=== PATIENT | female | born 2000 | race Caucasian/White ===

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

== ENCOUNTER 2022-04-27 11:45 | Emergency (ER) | payer BC, SELFPAY ==
[2022-04-27 12:19] VITALS: BP 133/92; PULSE 88; RESP 17; TEMP 36.2; O2SAT 99; BMI 20.1
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
[2022-04-27] MEDS: sodium chloride 0.9% 1,000 ML 999 ML IV ×2 (12:58→14:38)
[2022-04-27 13:20] LABS: Basophils % 0.3 %; Eosinophils # 0.2 10^3/uL (0.0-0.8); Eosinophils % 1.2 %; Hematocrit 43.5 % (37.0-47.0); Hemoglobin 14.4 g/dL (11.5-15.3); Lymphocytes # 3.6 10^3/uL (1.5-6.5); Lymphocytes % 29.3 %; Mean Corpuscular HGB Conc 33.1 g/dL (30.0-36.0); Mean Corpuscular Hemoglobin 28.7 pg (28.0-34.0); Mean Corpuscular Volume 86.8 fl (81-99); Mean Platelet Volume 10.9 fL (7.4-10.4); Monocytes % 8.4 %; Neutrophils # 7.51 10^3/uL (1.8-8.0); Neutrophils % 60.6 %; Nucleated Red Blood Cells % 0 %; Platelet Count 315 10^3/cmm (130-400); Red Blood Count 5.01 10^6/uL (4.1-5.3); Red Cell Distribution Width 11.5 % (12.1-15.1); White Blood Count 12.4 10^3/uL (4.5-13.0)
[2022-04-27 13:50] LABS: Alanine Aminotransferase 17 U/L (0-33); Albumin Level 4.6 g/dL (3.5-5.2); Alkaline Phosphatase 110 IU/L (35-105); Anion Gap 14.6 (5-19); Aspartate Amino Transferase 18 U/L (0-32); Blood Urea Nitrogen 12 mg/dL (6-20); C Reactive Protein 4.6 mg/L (0.0-4.9); Calcium 9.6 mg/dL (8.5-10.5); Carbon Dioxide 26 mmol/L (22-29); Chloride 100 mmol/L (98-107); Globulin 3.2 g/dL (1.3-4.6); Glomerular Filtration Rate 128.8 mL/min (90-130); Glucose 79 mg/dL (65-115); Lipase 19 U/L (13-60); Osmolality Calculated 283 mOsm/kg (285-295); Potassium 3.6 mmol/L (3.5-5.1); Sodium 137 mmol/L (136-145); Total Bilirubin 0.3 mg/dL (0.15-1.2); Total Protein 7.8 g/dL (6.6-8.7)
[2022-04-27 13:57] LABS: Procalcitonin 0.03 ng/mL (0-0.5)
[2022-04-27 13:59] LABS: Lactate (Lactic Acid level) 0.8 mmol/L (0.5-2.2)
[2022-04-27] MEDS: diphenhydrAMINE 50 mg/mL SDV 1mL IVP (14:37)
[2022-04-27] MEDS: famotidine 20 mg/2 mL INJ 40 MG IVP (14:38)
[2022-04-27 15:01] VITALS: BP 117/51; PULSE 127; RESP 18; O2SAT 96
[2022-04-28 13:34] LABS: Lyme AB Screen <0.90 index
--- NOTE | 2022-04-28 14:50 | DCPLANNER ---
Addendum entered by Anyi Bertrand 05/11/22 07:30: Patient had a follow up appointment scheduled with dermatology - patient did attend appointment. Original Note: material control manager had message to schedule a follow up appointment for patient with dermatology. material control manager called the dermatology clinic, gave clinic patients information. A follow up appointment is scheduled for Wednesday, April 29, 2022 at 3:[address] Zarco. Patient is aware of the appointment.
[2022-05-02 17:37] LABS: RMSF IGG NOT DETECTED; RMSF IGM NOT DETECTED
[2022-05-02 21:28] LABS: E. Chaffeensis AB IGG <1:64; E. Chaffeensis AB IGM <1:20
== END 2022-04-27 15:41 | disposition home or self-care (01) ==
PROVIDERS: Emergency Provider Emergency Medicine; PCP Family Medicine
DX: R21 Rash and other nonspecific skin eruption (principal)
CPT/HCPCS: 80053; 83605; 83690; 84145; 85025; 86140; 86618; 86666; 86757; 87040; 96361; 96374; 96375; 99284; J1200; J3490; J7030

== ENCOUNTER → 2022-10-05 14:10 | Outpatient (BNVA) | payer BC, SELFPAY | PROVIDERS: PCP Family Medicine; Visit Provider Clinical Nurse Specialist Adult Health | DX: E16.2 Hypoglycemia, unspecified (principal) | CPT/HCPCS: 83036 ==

== ENCOUNTER → 2022-12-18 10:53 | Outpatient (BNVA) | payer BC, SELFPAY | PROVIDERS: PCP Family Medicine; Visit Provider Family Medicine | DX: R39.9 Unspecified symptoms and signs involving the genitourinary system (principal); R31.9 Hematuria, unspecified; N39.0 Urinary tract infection, site not specified | CPT/HCPCS: 81000; 87077; 87086; 87184 ==

== ENCOUNTER 2024-10-25 05:00 | Emergency (ER) | payer BC, SELFPAY ==
[2024-10-25 05:18] VITALS: BP 133/85; PULSE 77; RESP 18; TEMP 36.6; O2SAT 99; BMI 19.3
--- NOTE | 2024-10-25 05:21 | XRR_ITS ---
PROCEDURE INFORMATION: Exam: XR Chest Exam date and time: 10/25/2024 5:24 AM Age: 23 years old Clinical indication: Angina and cough; Additional info: Chest pain TECHNIQUE: Imaging protocol: Radiologic exam of the chest. Views: 1 view. COMPARISON: CR XR chest 1V portable [id number] 10/09/2020 11:54 PM FINDINGS: Lungs: Unremarkable. No consolidation. Pleural spaces: Unremarkable. No pleural effusion. No pneumothorax. Heart/Mediastinum: Unremarkable. No cardiomegaly. Bones/joints: Unremarkable. XR/XR chest 1V portable [id number] IMPRESSION: No acute findings.
--- NOTE | 2024-10-25 05:24 | ED_ITS ---
HPI - URI/Sore Throat General: Chief Complaint: Upper Respiratory Infection Stated Complaint: cough pain in L lung Time Seen by Provider: 10/25/24 05:06 History of Present Illness: 23-year-old female who is currently 7 we eks who presents emergency room with cough. She said this been present for 3 months now. She says she feels like there is something in her lung. Related Data Previous Rx's Medication Instructions Recorded albuterol sulfate 90 mcg/actuation 1 - 2 puff inhalation Q4H PRN 03/30/23 aerosol inhaler shortness of breath or wheezing #8.5 grams epinephrine 0.3 mg/0.3 mL 0.3 mg (0.3 mL) IM Q4H PRN 03/30/23 injection, auto-injector (EpiPen Allergic Reaction #2 ea 2-Sean) amoxicillin 875 mg-potassium 1 tab PO BID 7 days #14 tabs 08/27/24 clavulanate 125 mg tablet dexamethasone 6 mg tablet 6 mg PO DAILY 5 days #5 tabs 10/25/24 Allergies Allergy/AdvReac Type Severity Reaction Status Date / Time aspirin Allergy rash Verified 10/25/24 05:22 coconut Allergy Unknown Verified 10/25/24 05:22 ibuprofen Allergy rash Verified 10/25/24 05:22 shellfish derived Allergy anaphylaxis Verified 10/25/24 05:22 Review of Systems Narrative: Constitutional symptoms: Negative except as documented in HPI. Skin symptoms: Negative except as documented in HPI. Eye symptoms: Negative except as documented in HPI. ENMT symptoms: Negative except as documented in HPI. Respiratory symptoms: Negative except as documented in HPI. Cardiovascular symptoms: Negative except as documented in HPI. Gastrointestinal symptoms: Negative except as documented in HPI. Genitourinary symptoms: Negative except as documented in HPI. Musculoskeletal symptoms: Negative except as documented in HPI. Neurologic symptoms: Negative except as documented in HPI. Psychiatric symptoms: Negative except as documented in HPI. Endocrine symptoms: Negative except as documented in HPI. PFSH ED PFSH: Medical History History of suicidal ideation Alcohol related seizure Anxiety Contraception management Surgical History Hx of tonsillectomy Family History Other Multiple sclerosis Social History Smoking and tobacco/nicotine status: never used tobacco/nicotine Second hand smoke exposure: No Alcohol intake: never Substance/Drug Use: never Current gender identity: Female Female Reproductive History: Date of last menstrual period: 08/31/24 Physical Exam Narrative: EXAM NARRATIVE: General: Alert, no acute distress. Skin: Warm, dry. Head: Normocephalic, atraumatic. Neck: Supple, trachea midline. Eye: Extraocular movements are intact. Ears, nose, mouth and throat: mucosa moist. Cardiovascular: Regular, Normal peripheral perfusion. Respiratory: Lungs are clear to auscultation, respirations are non-labored, breath sounds are equal, Symmetrical chest wall expansion. Gastrointestinal: Soft, Nontender, Non distended Musculoskeletal: Normal ROM, no deformity. Neurological: Alert and oriented, No focal neurological deficit observed. Psychiatric: Cooperative, appropriate mood & affect. Course Vital Signs: Vital signs: Vital Signs Temperature 97.8 F 10/25/24 05:18 Pulse Rate 76 10/25/24 05:33 Respiratory Rate 18 10/25/24 05:18 Blood Pressure 119/80 10/25/24 05:33 Pulse Oximetry 98 10/25/24 05:33 Oxygen Delivery Me thod Room Air 10/25/24 05:18 MDM - URI/Sore Throat Medical Decision Making \Chest x-ray: No acute process. No infiltrate. No pneumothorax. This was reviewed and interpreted by myself the emergency room physician. I also reviewed the radiology report. Assessment and plan: Cough - Discharged home - Discussed plan with patient. Answered any questions. - Evaluation and treatment of this problem were appropriate in the emergency setting. XR interpretation done by ED provider, pending radiology final review Discharge Plan Discharge Patient Disposition: Home Clinical Impression: Chronic cough Condition: Stable Prescriptions: New dexamethasone 6 mg tablet 6 mg PO DAILY 5 Days Qty: 5 0RF No Action amoxicillin-pot clavulanate 875-125 mg tablet 1 tab PO BID 7 Days Qty: 14 0RF albuterol sulfate 90 mcg/actuation HFA aerosol inhaler 1 - 2 puff INHALATION Q4H PRN (Reason: shortness of breath or wheezing) Qty: 8.5 11RF EpiPen 2-Sean 0.3 mg/0.3 mL auto-injector 0.3 mg IM Q4H PRN (Reason: Allergic Reaction) Qty: 2 11RF Discharge Orders: Discharge ED (Routine); Ordered 10/25/24 Ordered By: Mojgan Sanchez Referrals: Daron Mcdonald MD [Primary Care Provider] - Discharge Diet: Usual diet Discharge Activity: Increase activity as tolerated Patient Instructions: Opioid Safety, Pain Management Activity Restrictions/Additional Instructions: Thank you for choosing [facility] for your healthcare needs today. Please realize this is an emergency room and that we are providing you with a medical screening exam and this may not be complete and all inclusive of all the testing and or work up that you may need to determine your ailment or severity of your illness. You have been screened and evaluated and felt safe for discharge. Health conditions do change or evolve sometimes and as such it is important that you follow up with your Primary Doctor to be re checked, 3-5 days is a general good time frame for follow up. You are always welcome to return to the ED for re assessment if your symptoms are worsening or you have new concerns Coding Level of Care Code ED 911 Operator for Carolyn Serrano
[2024-10-25 05:33] VITALS: BP 119/80; PULSE 76; O2SAT 98
[2024-10-25 05:43] VITALS: BP 124/77; PULSE 74; O2SAT 94
[2024-10-25 06:08] LABS: Covid PCR NEGATIVE (Negative); Influenza A NEGATIVE (Negative); Influenza B NEGATIVE (Negative); Respiratory Syncytial Virus Ce NEGATIVE (Negative)
== END 2024-10-25 05:44 | disposition home or self-care (01) ==
PROVIDERS: Emergency Provider Emergency Medicine; PCP Family Medicine
DX: R05.3 Chronic cough (principal); Z3A.01 Less than 8 weeks gestation of pregnancy
CPT/HCPCS: 0241U; 71045; 99284

== ENCOUNTER 2025-04-09 10:12 | Oncology outpatient (recurring) (ONCR) | payer BC, MEDICAID, SELFPAY ==
[2025-04-09] MEDS: rho(d) immune globulin 1,500 unit Syringe 1500 UNIT IM (11:14)
[2025-04-09 11:20] VITALS: BP 114/72; PULSE 76; RESP 16; O2SAT 99
== END 2025-04-21 23:59 | disposition home or self-care (01) ==
PROVIDERS: PCP Family Medicine; Visit Provider Family Medicine
DX: O26.899 Other specified pregnancy related conditions, unspecified trimester (principal); Z79.899 Other long term (current) drug therapy
CPT/HCPCS: 96372; J2790

== ENCOUNTER 2025-06-06 08:00 | Outpatient (CLI) | payer BC, MEDICAID, SELFPAY ==
--- OUTSIDE RECORDS SUMMARY | 2025-06-20 08:10 | XMS_ITS | Clinical Summary ---
Author Organization [facility] Address [address] Attn: [place] [address] Care Team Providers Care Planning Feeder Name Role Phone Sigifredo Faulkner MD Primary Care Provider [phone] Allergies Active Allergy Reactions Criticality Noted Date [...] 09/06/20 Active fluticasone propionate (FLONASE) 50 mcg/spray Butternut, Suspension nasal inhalerIndicatio ns:Eustachian tube dysfunction, bilateral [...] on file Legal Sex Female 2:19 AM [employer] Gender Identity Not on file Sexual Orientation [...] VACCINE (#1) 2025 , 09/06/2024, 11/25/2023 Insurance [employer] ACCESS/TRUE [employer] PPO Care Teams Planning Feeder Relationship Specialty Start Date End Date Sigifredo Faulkner MD [address] [place] [address] PCP - General Family Practice 08/25/23
--- OUTSIDE RECORDS SUMMARY | 2025-06-20 08:10 | XMS_ITS | Clinical Summary ---
Author Organization [facility] Address [address] [place] [address] Phone Care Team Providers Care Malt Specifications Control Assistant Name Role Phone Cassandra Escobar MD Primary [...] (#1) 2025 Insurance BCBS BCBS Care Teams Malt Specifications Control Assistant Relationship Specialty Start Date End Date Cassandra Escobar MD [address] [place] [address] PCP - General Family Practice 08/13/16
== END 2025-06-06 08:01 | disposition home or self-care (01) ==
LOC: OPOB 06-20 08:15
PROVIDERS: PCP Family Medicine; Visit Provider Family Medicine
DX: Z53.9 Procedure and treatment not carried out, unspecified reason (principal)

== ENCOUNTER 2025-06-08 02:24 | Outpatient (CLI) | payer BC, MEDICAID, SELFPAY ==
[2025-06-08] VITALS (9 sets, daily range): BP systolic 117–143; BP diastolic 80–86; PULSE 79–105; RESP 16; TEMP 36.1–36.6; O2SAT 100; BMI 24.7
--- NOTE | 2025-06-08 05:07 | PC.NURSE ---
Advised patient of order to discharge home. Offered 1 tab [place] and patient declines. Advised she could take tylenol at home if desired. Encouraged hydrotherapy in bath or shower at home for relaxation.
== END 2025-06-08 05:25 | disposition home or self-care (01) ==
LOC: OPOB 02:24 → OBGYN 02:24
PROVIDERS: PCP Family Medicine; Visit Provider Family Medicine
DX: O26.899 Other specified pregnancy related conditions, unspecified trimester (principal); Z3A.00 Weeks of gestation of pregnancy not specified; R10.9 Unspecified abdominal pain
CPT/HCPCS: 59025; 99211

== ENCOUNTER 2025-06-08 13:38 | Outpatient (CLI) | payer BC, MEDICAID, SELFPAY ==
[2025-06-08] VITALS (8 sets, daily range): BP systolic 115–125; BP diastolic 71–85; PULSE 81–96; RESP 18; BMI 24.7
[2025-06-08] MEDS: HYDROcodone-acetaminophen 5-325 mg Tablet 2 TAB PO (14:39)
== END 2025-06-08 16:15 | disposition home or self-care (01) ==
LOC: OPOB 13:42 → OBGYN 13:43
PROVIDERS: PCP Family Medicine; Visit Provider Family Medicine
DX: O26.899 Other specified pregnancy related conditions, unspecified trimester (principal); Z3A.00 Weeks of gestation of pregnancy not specified; R10.9 Unspecified abdominal pain
CPT/HCPCS: 59025; 99211; J9999

== ENCOUNTER 2025-06-09 00:20 | Inpatient (IN) | payer BC, MEDICAID, SELFPAY ==
[2025-06-08 23:34] VITALS: BP 128/82; PULSE 82
[2025-06-08 23:42] VITALS: BMI 24.7
[2025-06-08 23:50] VITALS: BP 136/83; PULSE 79
[2025-06-09] VITALS (92 sets, daily range): BP systolic 97–186; BP diastolic 54–102; PULSE 76–118; RESP 16–18; TEMP 36.6–36.8; O2SAT 97–100
[2025-06-09 00:35] LABS: Hematocrit 35.9 % (36-47); Hemoglobin 11.70 g/dL (11.27-16.99); Mean Corpuscular HGB Conc 32.6 g/dL (30-55); Mean Corpuscular Hemoglobin 29.3 pg (27-33); Mean Corpuscular Volume 89.8 fl (85-98); Nucleated Red Blood Cells % 0 %; Platelet Count 287 10^3/cmm (157-399); Red Blood Count 4.00 10^6/uL (3.85-5.65); White Blood Count 16.04 10^3/uL (3.29-11.43)
--- NOTE | 2025-06-09 01:35 | P.ANESASSM_ITS ---
Pre-Anesthetic Assessment Height/Weight: Height 1.68 m Weight 69.4 kg Pulse BP Pulse Ox O2 Del Method 87 125/78 97 Room Air 06/09/25 01:50 06/09/25 01:50 06/09/25 01:50 06/09/25 00:12 Preop Diagnosis: labor pain epidural Familial anesthetic complications: none Was Beta Devorah taken within 24 hours: N/A Was Clonidine taken within 24 hours: N/A Social No alcohol and No tobacco Exam alert and oriented x 3 Airway Submandibular: within normal limits Cervical ROM: within normal limits Mallampati: Class II Dentition: full History/ROS No significant complaints Pulmonary Asthma CV/HEM None reported None reported Hepatic None reported GI None reported Metabolic None reported Musc/skel Scoliosis (light curve per patient- no issues with epidural placement) Neuropsych None reported Anesthetic Plan ASA status: 2 Anesthesia: Anesthesia Evaluation and Regional (specify below) Risk of > 500 ml blood loss (7ml/kg in children): Yes, adequate IV access and fluids planned Medications/Allergies Home Medications ?Medication ?Instructions ?Recorded ?Confirmed ?Last Taken ?Type epinephrine 0.3 mg/0.3 mL 0.3 mg (0.3 mL) IM Q4H PRN 0 12/11/24 06/08/25 Unknown Rx injection, auto-injector (EpiPen Allergic Reaction #2 ea 2-Sean) Colace 1 cap PO DAILY 06/08/2505/2206/07/25 21:00 History 1 tab PO DAILY 06/08/2505/2206/07/25 21:00 History hydrocodone 5 mg-acetaminophen 325 1 tab PO Q4H PRN Pa in, Severe 06/08/25 06/08/25 Unknown History mg tablet Allergies Allergy/AdvReac Type Severity Reaction Status Date / Time aspirin Allergy rash Verified 06/08/25 23:47 coconut Allergy Unknown Verified 06/08/25 23:47 ibuprofen Allergy rash Verified 06/08/25 23:47 shellfish derived Allergy anaphylaxis Verified 06/08/25 23:47 Current Medications Generic Name Dose Route Start Last Admin Trade Name Freq PRN Reason Stop Dose Admin Sodium Chloride 1,000 mls @ 999 mls/hr 06/09/25 00:12 06/09/25 00:35 Sodium Chloride 0.9% IV 999 mls/hr .Q1H1M PRN Administration See label comments [facility] Anesthesia Medical History (Updated 11/02/24 @ 00:01 by ISABELLA Sharma) History of suicidal ideation Alcohol related seizure Anxiety Contraception management Surgical History Hx of tonsillectomy Family History Other Multiple sclerosis Social History Smoking and tobacco/nicotine status: never used tobacco/nicotine Second hand smoke exposure: No Alcohol intake: never Substance/Drug Use: never Current gender identity: Female Female Reproductive History : 1 Data Anesthesia 06/09/25 00:25 Short CBC 06/09/25 Range/Units 00:25 WBC 16.04 H (3.29-11.43) 10^3/uL Hgb 11.70 (11.27-16.99) g/dL Hct 35.9 L (36-47) % MCV 89.8 (85-98) fl Plt Count 287 (157-399) 10^3/cmm Neut % (Auto) 74.6 % Neut # (Auto) 11.95 H (1.8-7.7) 10^3/uL Blood Bank 06/09/25 00:25 Blood Type O Negative Rho(D) Type Rh negative Antibody Screen Negative
[2025-06-09] MEDS: ROPivacaine premix 100 MG/50 ML PREMIX 10 MG EPIDURAL (01:53)
--- NOTE | 2025-06-09 01:55 | ANES.PROC ---
Anesthesia Procedures Procedure/Date: 06/09/25 Epidural: Time Out Performed: Yes Consents Signed: Procedure Consent Consent: from patient, risks and benefits reviewed and patient agrees to proceed Lumbar Level: L3-L4 Epidural position: sitting Epidural procedure: sterile prep of area, 1% lidocaine to numb the area, 18 g needle, negative for paresthesia passed, test dose given, 1.5% xylocaine 1:200k epi, placed PCEA, no systemic response, sterile dressing applied, L.U.D. no apparent complications and 0.2% Ropiavacaine @ mls/hr (13) Additional Comments: LEYDA at 4, negative heme/CSF with aspiration. taped at 11 at skin. tolerated well.
[2025-06-09] MEDS: ROPivacaine premix 100 MG/50 ML PREMIX 13 MG EPIDURAL (08:25)
[2025-06-09] MEDS: lidocaine 2% INJ 20 mL INJECTION (11:50)
[2025-06-09] MEDS: oxytocin 30 UNIT/500 ML BAG 999 UNIT IV (12:21)
--- NOTE | 2025-06-09 12:29 | PM.DELIVERY ---
Delivery Note: Date of delivery: June 09, 2025 Pre-delivery diagnoses: Term intrauterine Post-delivery diagnoses: Same Procedure: Spontaneous vaginal delivery Op report anesthesia: Epidural Estimated blood loss (mL): 400 Pre-Delivery Course: This is a 24-year-old G1, P1 that presented with contractions that made cervical change. The patient made progressive progress after her rupture membranes this a.m. Delivery: Once patient was completely dilated the patient was placed into the normal lithotomy position. The patient was pushing with contractions and after approximately 30 minutes of pushing the patient delivered the 's head followed by the body without difficulty. Infant was placed onto mother's abdomen and after delay the cord was clamped and cut. Gentle traction was placed upon the cord with fundal massage however the cord did avulse from the top of the placenta. No uterine extraction was performed. Sweep of the uterine wall after placenta was removed did not demonstrate any continued retained products and uterus was firm. Oxytocin was started and uterine tone continued to do well. Review of the external genitalia did demonstrate periurethral tears bilaterally and a left labial tear that extended down into the perineum. Right periurethral tear was repaired with 2-0 Vicryl in a running fashion. Left periurethral tear was also repaired with 2-0 Vicryl. Left labial tear was repaired with 2-0 Vicryl in a running fashion. At the end of the procedure uterine tone remained good and bleeding was managed. Post-Delivery Status: Stable A&P Assessment and plan 1. Normal spontaneous vaginal delivery: Proceed with routine care. PDMP PDMP Reviewed: Not Reviewed Coding Level of Care Code Acute Code for Chg Fwd Diagnoses Normal spontaneous vaginal delivery O80
[2025-06-09] MEDS: benzocaine-menthol 78 gm Canister 1 SPRAY TOPICAL (13:12)
[2025-06-09] MEDS: HYDROcodone-acetaminophen 5-325 mg Tablet PO (20:57)
[2025-06-09 23:03] LABS: Hematocrit 35.1 % (36-47); Hemoglobin 11.80 g/dL (11.27-16.99); Mean Corpuscular HGB Conc 33.6 g/dL (30-55); Mean Corpuscular Hemoglobin 29.9 pg (27-33); Mean Corpuscular Volume 89.1 fl (85-98); Platelet Count 331 10^3/cmm (157-399); Red Blood Count 3.94 10^6/uL (3.85-5.65); White Blood Count 23.45 10^3/uL (3.29-11.43)
[2025-06-10] VITALS (8 sets, daily range): BP systolic 113–127; BP diastolic 72–84; PULSE 82–142; RESP 16–18; TEMP 36.4–37; O2SAT 97–98
[2025-06-10] MEDS: HYDROcodone-acetaminophen 5-325 mg Tablet PO (03:35)
[2025-06-10] MEDS: oxyCODONE-APAP 5-325 mg Tablet PO (05:12)
--- NOTE | 2025-06-10 08:00 | P.ANESPOST_ITS ---
Inpatient post-anesthesia follow up: Airway intact: Yes Vital signs: Temperature 97.6 F Pulse Rate 87 Respiratory Rate 18 Blood Pressure 118/76 Pulse Oximetry 98 Oxygen Delivery Me thod Room Air Oxygen Flow Rate Fraction of Inspir ed Oxygen Nausea and vomiting: No Pain level: 1 Mental status: Baseline Epidural Start/End: Epidural Start Date: 06/09/25 Epidural Start Time: 01: 31 Epidural End Date: 06/09/25 Epidural End Time: 12:15
--- NOTE | 2025-06-10 09:15 | PM.OBGYPN ---
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 She is having to urinate often. She is concerned about is not getting enough breastmilk. She had very little sleep last night and is clearly frustrated. Labor: Station: 0 Amniotic Membrane Status: Ruptured Monitor Mode: External Contraction Pattern: Regular Vitals/I&O/Wt Last Vital Signs Temp 98.3 F 06/09/25 18:30 Pulse 110 H 06/10/25 06:34 Resp 17 06/10/25 05:19 BP 115/78 06/10/25 05:19 Pulse Ox 98 06/10/25 05:12 O2 Del Method Room Air 06/10/25 05:19 06/09/25 06/10/25 06/10/25 22:59 06:59 14:59 Intake Total 50 / 50 Balance 50 / 50 Weight last 48 hrs Weight 153 lb Physical Exam Narrative: The patient is alert. She appears comfortable. Her heart has a regular rate and rhythm with no murmurs appreciated. Lungs are clear to auscultation bilaterally. Her fundus is firm and below the umbilicus. The perineum demonstrates swollen labia bilaterally. She is very tender to the touch. Urinary Catheter Management: Gilbert Latex Free: Cath Placed During This Visit: yes Reason for Continuing Indwelling Catheter: Required Immobilization for Trauma or Surgery or Anesthesia Urinary Catheter Date of Insertion: 06/09/25 Urinary Catheter Time of Insertion: 03:00 Data 06/09/25 21:50 A&P Assessment and plan 1. Urethral irritation: We discussed with the patient the nature of her anterior vaginal region tear. It does feel a lot like she is just frustrated because she is so tired at this time. Will continue to monitor her situation and consider further intervention as needed. 2. Perineal pain: 3. state: PDMP PDMP Reviewed: Not Reviewed Attestations Medical Necessity Statement*: I anticipate routine care. Coding Level of Care Code Acute Code for Chg Fwd Diagnoses Urethral irritation N36.8 Perineal pain R10.2 state Z39.2
[2025-06-10] MEDS: PRENATAL VIT NO.130/IRON/FOLIC 1 EACH TABLET PO (09:39)
--- NOTE | 2025-06-10 18:43 | PC.NURSE ---
[id number] this contract technical writer took over patient care from maycol jimenez rn at this time.
--- NOTE | 2025-06-27 06:51 | PM.OBGYDC ---
Discharge Providers PROCESS OWNER Date of Admission: 06/09/25 00:20 Date of Discharge: 06/27/25 Attending Provider at Admission: Efra Connell MD Attending Provider at Discharge: Efra Connell MD Primary Care Provider: Daron Mcdonald MD Diagnoses at Discharge Discharge Diagnosis 1. Urethral irritation: 2. Perineal pain: 3. state: Reason for Visit Reason for Visit: CTX Hospital Course Hospital Course The patient is a 24-year-old 1 who presented to the hospital in active labor. She had an unremarkable labor. Her delivery was remarkable for having the cord avulsing from the placenta. The placenta had to be manually removed. After evaluation of the patient's perineum she was noted to have significant tearing in the anterior aspect of her vaginal wall/urethral area. The remainder of her hospital course was notable for having significant vaginal pain. Otherwise her bleeding was within normal limits. She did quite well. Information Peripartum Data: Delivery Method: Vaginal Physical Exam Narrative: The patient is alert. She appears comfortable. Her heart has a regular rate and rhythm with no murmurs appreciated. Lungs are clear to auscultation bilaterally. Her fundus is firm and below the umbilicus. Urinary Catheter Management: Gilbert Latex Free: Cath Placed During This Visit: yes Reason for Continuing Indwelling Catheter: Required Immobilization for Trauma or Surgery or Anesthesia Urinary Catheter Date of Insertion: 06/09/25 Urinary Catheter Time of Insertion: 03:00 Discharge Data Studies Completed and Pending Laboratory Results WBC 23.45 10^3/uL (3.29-11.43) H 06/09/25 21:50 RBC 3.94 10^6/uL (3.85-5.65) 06/09/25 21:50 Hgb 11.80 g/dL (11.27-16.99) 06/09/25 21:50 Hct 35.1 % (36-47) L 06/09/25 21:50 MCV 89.1 fl (85-98) 06/09/25 21:50 MCH 29.9 pg (27-33) 06/09/25 21:50 MCHC 33.6 g/dL (30-55) 06/09/25 21:50 RDW 12.5 % (12.1-15.1) 06/09/25 21:50 Plt Count 331 10^3/cmm (157-399) 06/09/25 21:50 MPV 12.2 fL (7.4-10.4) H 06/09/25 21:50 Neut % (Auto) 74.6 % 06/09/25 00:25 Lymph % (Auto) 14.3 % 06/09/25 00:25 Duval % (Auto) 9.7 % 06/09/25 00:25 Eos % (Auto) 0.8 % 06/09/25 00:25 Baso % (Auto) 0.2 % 06/09/25 00:25 Neut # (Auto) 11.95 10^3/uL (1.8-7.7) H 06/09/25 00:25 Lymph # (Auto) 2.3 10^3/uL (0.8-4.8) 06/09/25 00:25 Duval # (Auto) 1.6 10^3/uL (0.2-0.9) H 06/09/25 00:25 Eos # (Auto) 0.1 10^3/uL (0.0-0.8) 06/09/25 00:25 Baso # (Auto) 0.0 10^3/uL (0.0-0.1) 06/09/25 00:25 Nucleated RBC % (auto) 0 % 06/09/25 00:25 Nucleated RBCs # 0.0 /100WBC 06/09/25 00:25 Blood Type O Negative 06/09/25 00:25 Rho(D) Type Rh negative 06/09/25 00:25 Antibody Screen Negative 06/09/25 00:25 Screen Negative (Negative) 06/09/25 21:50 Vitals Last Vital Signs Temp 97.6 F 06/10/25 20:10 Pulse 87 06/10/25 20:10 Resp 18 06/10/25 20:10 BP 118/76 06/10/25 20:10 Pulse Ox 98 06/10/25 20:10 O2 Del Method Room Air 06/10/25 18:48 Results Labs OB ([facility]): Blood Type O Negative 06/09/25 Antibody Screen Negative 06/09/25 Hct, (36-47) 35.1 % L 06/09/25 Hgb, (11.27-16.99) 11.80 g/dL 06/09/25 Rho(D) Type Rh negative 06/09/25 Plt Count, (157-399) 331 10^3/cmm 06/09/25 Discharge Plan Discharge Patient Disposition: Home Prescriptions: Continued EpiPen 2-Sean 0.3 mg/0.3 mL auto-injector 0.3 mg IM Q4H PRN (Reason: Allergic Reaction) Qty: 2 11RF Colace 1 cap PO DAILY 1 tab PO DAILY hydrocodone-acetaminophen 5-325 mg Tablet 1 tab PO Q4H PRN (Reason: Pain, Severe) Discharge Order = DC NOW: Discharge Order (Routine); Ordered 06/10/25 Ordered By: Efra Connell Referrals: Efra Connell MD [Physician, Family Practice] Referral Note: CALL WEDNESDAY AND MAKE APPOINTMENT TO SEE DR. CONNELL IN ONE WEEK. Discharge Diet: Usual diet Discharge Activity: Limit activity as instructed Patient Instructions: Depression (DC), Opioid Safety (DC), Preeclampsia and Eclampsia After Delivery (GEN), Hemorrhage (DC), OB Discharge Report, OB Food/Drug Interaction Guide, OB Care at Home, Opioid Safety, OB Vaginal Deliveries, Patient Portal & Delia Instructions, Abnormal Bleeding Discharge Attestations PROCESS OWNER Time Spent in Discharge Care*: less than 30 min Coding Level of Care Code Acute Code for Chg Fwd Diagnoses Urethral irritation N36.8 Perineal pain R10.2 state Z39.2
== END 2025-06-10 20:36 | disposition home or self-care (01) | DRG 807 ==
LOC: OPOB 00:27 → OBGYN 00:27
PROVIDERS: Family Medicine; Admitting Provider Family Medicine; PCP Family Medicine; Visit Provider Family Medicine
DX: O70.0 First degree perineal laceration during delivery (principal); Z37.0 Single live birth; O90.89 Other complications of the puerperium, not elsewhere classified; N36.8 Other specified disorders of urethra; Z3A.37 37 weeks gestation of pregnancy
CPT/HCPCS: 36415; 36430; 51702; 59025; 59409; 85025; 85027; 85460; 86850; 86900; 90384; 99211; J2590; J2795; J7030; J7121; J9999

== ENCOUNTER 2025-06-16 22:18 | Emergency (ER) | payer BC, MEDICAID, SELFPAY ==
--- OUTSIDE RECORDS SUMMARY | 2025-06-16 22:22 | XMS_ITS | Clinical Summary ---
Author Organization [facility] Address [address] Attn: [place] [address] Care Team Providers Care Nurse Care Manager Name Role Phone Sigifredo Faulkner MD Primary Care Provider [phone] Allergies Active Allergy Reactions Criticality Noted Date Comments Aspirin Anaphylaxis High 08/25/2023 Ibuprofen Rash Low 08/25/2023 Medications albuterol sulfate HFA 90 mcg/actuation aerosol inhaler Take 2 Puffs by inhalation every 6 hours as needed for Shortness of Breath. Active EPINEPHrine (EPIPEN) 0.3 mg/0.3 mL Auto-Injector Inject 0.3 mg by intramuscular injection 1 time daily as needed for Anaphylaxis. Active ketorolac tromethamine (KETOROLAC ORAL) Take by mouth. Active cefdinir (OMNICEF) 300 mg capsule Take 300 mg by mouth every 12 hours. Active cetirizine (ZyrTEC) 10 mg tabletIndication s:Eustachian tube dysfunction, bilateral Take 1 Tablet (10 mg) by mouth daily. 90 Tablet 1 09/06/20 Active fluticasone propionate (FLONASE) 50 mcg/spray [place], Suspension nasal inhalerIndicatio ns:Eustachian tube dysfunction, bilateral Administer 2 Sprays in each nostril daily. 16 Gram 11 09/06/20 24 Active Active Problems Problem Noted Date Diagnosed Date Declined influenza vaccine 09/06/2024 Encounters Date Type Department Care Team Description 06/06/2025 External Device Data [facility] ABSTRACTION Provider, Abstract 06/06/2025 External Device Data [facility] ABSTRACTION Provider, Abstract 05/08/2025 External Device Data [facility] ABSTRACTION Provider, Abstract 04/12/2025 External Device Data [facility] ABSTRACTION Provider, Abstract 04/12/2025 External Device Data [facility] ABSTRACTION Provider, Abstract 03/27/2025 External Device Data [facility] ABSTRACTION Provider, Abstract from Last 3 Months Family History Medical History Relation Name Comments Healthy Brother Other Mother MS Relation Name Status Comments Brother Alive Mother Alive Social History Tobacco Use Types Packs/Day Years Used Date Smoking Tobacco: Never Passive Smoke Exposure: Never Smokeless Tobacco: Never Tobacco Cessation:Counseling Given: No Alcohol Use Standard Drinks/Week Comments No 0 (1 standard drink = 0.6 oz pur e alcohol) ocassionally Comments No Sex and Gender Information Value Date Recorded Sex Assigned at Not on file 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 Gender Identity Not on file Sexual Orientation Not on file Last Filed Vital Signs Vital Sign Reading Time Taken Comments Blood Pressure 110/84 09/06/2024 9:53 AM CDT Pulse 83 09/06/2024 9:53 AM CDT Temperature 36.2 C (97.2 F) 09/06/2024 9:53 AM CDT Respiratory Rate 18 09/06/2024 9:53 AM CDT Oxygen Saturation 99% 09/06/2024 9:53 AM CDT Inhaled Oxygen Concentration - - Weight 52.9 kg (116 lb 9.6 oz) 09/06/2024 9:53 A M CDT Height 167.6 cm (5' 6 ) 09/06/2024 9:53 AM CDT Body Mass Index 18.82 09/06/2024 9:53 AM CDT Plan of Treatment Health Maintenance Due Date Last Done Comments CHLAMYDIA SCREENING (ANNUAL) 11-24 YEARS 2013 HPV VACCINES (1 - 3-dose series) 2017 DTAP/TDAP/TD VACCINES (1 - Tdap) 2021 HEPATITIS B VACCINES (1 of 3 - 19+ 3-dose series) 2021 CERVICAL CANCER SCREENING 2023 HPV/Cotest (21-29) 2023 PAP SMEAR 2023 Preventative Visit- Commercial 11/22/2024 07/10/2024 INFLUENZA VACCINE (#1) 2025 , 09/06/2024, 11/25/2023 Insurance [place] [employer] P[employer] Care Teams Nurse Care Manager Relationship Specialty Start Date End Date Sigifredo Faulkner MD [address] [place] [address] PCP - General Family Practice 08/25/23
--- OUTSIDE RECORDS SUMMARY | 2025-06-16 22:22 | XMS_ITS | Clinical Summary ---
Author Organization [facility] Address [address] [place] [address] Phone Care Team Providers Care Electric Distribution Checker Name Role Phone Cassandra Escobar MD Primary Care Provider Allergies No known active allergies Medications melatonin 3 mg TabletIndications :Localized swelling, mass or lump of neck,H/O removal of thyroglossal duct cyst,Abnormally prolonged clotting time Take 3 mg by mouth daily at bedtime. Active Active Problems No known active problems Family History Medical History Relation Name Comments Healthy Brother Other Mother MS Relation Name Status Comments Brother Alive Mother Alive Social History Tobacco Use Types Packs/Day Years Used Date Smoking Tobacco: Never Smokeless Tobacco: Never Alcohol Use Standard Drinks/Week Comments No 0 (1 standard drink = 0.6 oz pur e alcohol) Comments No Sex and Gender Information Value Date Recorded Sex Assigned at Not on file Legal Sex Female 1:26 PM CDT Gender Identity Not on file Sexual Orientation Not on file Last Filed Vital Signs Vital Sign Reading Time Taken Comments Blood Pressure 113/73 08/13/2016 1:37 PM CDT Pulse 68 08/13/2016 1:37 PM CDT Temperature 36.7 C (98 F) 08/13/2016 1:37 PM CDT Respiratory Rate 16 08/13/2016 1:37 PM CDT Oxygen Saturation 100% 08/13/2016 1:37 PM CDT Inhaled Oxygen Concentration - - Weight 51.1 kg (112 lb 9.6 oz) 08/13/2016 1:37 P M CDT Height 163.3 cm (5' 4.29 ) 08/13/2016 1:37 PM CD T Body Mass Index 19.15 08/13/2016 1:37 PM CDT Plan of Treatment Health Maintenance Due Date Last Done Comments CHLAMYDIA SCREENING (ANNUAL) 11-24 YEARS 2013 HPV VACCINES (1 - 3-dose series) 2017 DTAP/TDAP/TD VACCINES (1 - Tdap) 2021 HEPATITIS B VACCINES (1 of 3 - 19+ 3-dose series) 11/24 CERVICAL CANCER SCREENING 2023 HPV/Cotest (21-29) 2023 PAP SMEAR 2023 INFLUENZA VACCINE (#1) 2025 Insurance BCBS BCBS Care Teams Electric Distribution Checker Relationship Specialty Start Date End Date Cassandra Escobar MD [address] [place] [address] PCP - General Family Practice 08/13/16
--- OUTSIDE RECORDS SUMMARY | 2025-06-16 22:22 | XMS_ITS | Data Portability ---
Author Organization [facility] Pancho [facility] Mattie Keller [facility] Address [address] [facility] [address] [place] [address] Assessment No assessment recorded. Plan of Treatment Reminders Order Date Submit Date Provider Last Modified By Organization Details Last Modified Time Details Appointments OFFICE VISIT 10 2024 03:15P M Efra Connell MD Not available Not available Not available Lab streptoco ccus group B, culture, unspecifi ed specimen 2024 025 [facility], [address] [facility] [address], [address] [place], [address], 05/19/2025 09:39:49 Referral None recorded. Procedures None recorded. Surgeries None recorded. Imaging None recorded. Medication Orders None recorded. Patient TargetsNo targets recorded. Patient InstructionsNo instructions recorded. Reason for Referral None Reported. Results Created Date Observation Date Name Description Value Unit Range Abnormal Flag Note LastModifiedBy Organization Detail LastModifiedTime 04/02/2004/02/2025 CBC WBC 14.8 x10 4.0-10 .5 high Not Available [facility] [address], [place], [address], 04/02/2025 16:07:20 04/02/20 25 04/02/2025 CBC RBC 3.96 x10 3.50-5 .50 Not Available [facility] [address], [place], [address], 04/02/2025 16:07:20 04/02/20 25 04/02/2025 CBC HGB 12.4 g/dL 12.0-1 6.0 Not Available [facility] [address] [facility] [address], [place], [address], 04/02/2025 16:07:20 04/02/20 25 04/02/2025 CBC HCT 37.3 % 37.0-4 7.0 Not Available [facility] [address] [facility] [address], [place], [address], 04/02/2025 16:07:20 04/02/20 25 04/02/2025 CBC MCV 94.1 fL 80.0-9 9.9 Not Available [facility] [address] [facility] [address], [place], [address], 04/02/2025 16:07:20 04/02/20 25 04/02/2025 CBC MCH 31.2 pg 27.0-3 2.0 Not Available [facility] [address] [facility] [address], [place], [address], 04/02/2025 16:07:20 04/02/20 25 04/02/2025 CBC MCHC 33.2 g/dL 32.0-3 6.0 Not Available [facility] [address] [facility] [address], [place], [address], 04/02/2025 16:07:20 04/02/20 25 04/02/2025 CBC RDW 13.2 % 11.5-1 4.5 Not Available [facility] [address] [facility] [address], [place], [address], 04/02/2025 16:07:20 04/02/20 25 04/02/2025 CBC plt 321.8 x10 140.0- 451.0 Not Available [facility] [address] [facility] [address], [place], [address], 04/02/2025 16:07:20 04/02/20 25 04/02/2025 CBC lymphocytes % 15.8 % 20.0-5 0.0 low Not Available [facility] [address] [facility] [facility] [address], [place], [address], 04/02/2025 16:07:20 04/02/20 25 04/02/2025 CBC granulcytes % 75.6 % 30.0-7 0.0 high Not Available [facility] [address] [facility] [address], [place], [address], 04/02/2025 16:07:20 04/02/20 25 04/02/2025 CBC monocytes % 6.7 % 2.0-16 .0 Not Available [facility] [address] [facility], [place], [address], 04/02/2025 16:07:20 04/02/20 25 04/02/2025 CBC granulcytes# 11.2 x10 Not Luda ilable [facility] [address] [facility] [address], [place], [address], 04/02/2025 16:07:20 04/02/20 25 04/02/2025 CBC lymphocytes # 2.3 x10 Not Available [facility] [address] [facility], [place], [address], 04/02/2025 16:07:20 04/02/20 25 04/02/2025 CBC monocytes # 1.0 x10 Not Avai lable [facility] [address] [facility] [address], [place], [address], 04/02/2025 16:07:20 04/02/20 25 04/02/2025 GLUCO SE SCREE N glucose screen 158.0 mg/dL Not Available [facility] [address] [facility] [address], [place], [address], 04/02/2025 16:27:22 04/11/20 25 04/11/2025 GLUCO SE FASTI NG glucose fasting 82.0 mg/dL Not Available [facility] [address] [facility], [place], [address], 04/11/2025 09:45:35 04/11/20 25 04/11/2025 GLUCO SE 1 HR glucose 1 HR 143.0 mg/dL Not Available [facility] [address] [facility] [address], [place], [address], 04/11/2025 10:16:00 04/11/20 25 04/11/2025 GLUCO SE 2 HR glucose 2 HR 114.0 mg/dL Not Available [facility] [address] [facility] [address], [place], [address], 04/11/2025 11:16:31 04/11/20 25 04/11/2025 GLUCO SE 3 HR glucose 3 HR 102.0 mg/dL Not Available [facility] [address] [facility] [address], [place], [address], 04/11/2025 12:31:13 05/16/20 25 05/19/2025 STREP TOCOC CUS, GROUP B CULTU RE streptococcu s, group B culture SEE NOTE STREP TOCOC CUS, GROUP B CULTU RE Micro Numbe r: [id number] Test Statu s: Final Speci men Sourc e: Vagin al/an orect al Speci men Quali ty: Adequ ate Resul t: No group B Strep tococ cus isola jenna Note per CDC guide lines optim al recov greg is achie jennifer by swabb ing both the lower vagin a and rectu m (thro ugh the anal sphin cter) . Not Available [employer] [facility] [address], [place], [address], 05/19/2025 09:39:49 05/10/20 25 05/01/2025 US, obste tric, 3rd trime ster No observ ation record ed. [email or web address] Not Available 05/11 10:23:37 Result Notes None recorded. Problems Name Problem SNOMED Code Status Onset Date Resolution Date Notes Provider Name and Address Organization Details Recorded Time Normal in primigravid a 9054274774191 03 Active 2024 GRAYSON stock [facility], L.L.CMatthew 16:00:20 Normal in primigravid a 2827003928654 03 Active 2024 GRAYSON stock [facility], L.L.CMatthew 16:00:21 Breech presentatio n 6525895 Active 2024 MONIQUE MANSFIELD [facility], L.L.CMatthew 16:22:27 Uterine size for dates discrepancy 166462679 Active 2024 MONIQUE Butcher [facility], L.L.CMatthew 5 16:22:32 Abdominal pain in 226897363 Active 2024 Efra Connell MD [address] [place] [address], [address], [facility], L.L.CMatthew 5 17:14:40 Acute urinary tract infection 179453496 Active 2024 Efra Connell MD [address] [place] [address], [phone], [facility], L.L.CMatthew 11:54:47 Problem Notes None recorded. Procedures Surgical History Date Name Laterality Status Provider Name and Address Organization Details Recorded Time 025 sampling of anus for Papanicolaou smear completed [facility]AGA [facility] 04/18/2025 16:23:49 025 Date of Last Pap Smear completed GRAYSON PACHECO [facility], L.L.CMatthew 01/03/2025 15:42:38 tonsillectomy completed GRAYSON PACHECO [facility], LMatthewL.CMatthew 01/03/2025 15:42:57 Imaging Results None recorded. Procedure Notes None recorded. Medical Equipment None Reported. Allergies Allergen ID Allergen Name Allergen Category Reaction Reaction Severity Criticality Documentation Date Start Date Code Code System Note Provider Name and Address Organization Details Recorded Time 29953 ibuprofen medicatio n rash Not available Not available 06/19/2023 5640 RxNorm [facility] 5 15:25:18 45782 aspirin medicatio n anaphylax is Not available Not available 10/31/2024 1191 RxNorm MONIQUE Butcher [facility] L[facility]C. 4 14:24:05 31079 shellfish derived food,medi cation Not available Not available Not available 03/07/2025 04260 UNK MONIQUE Butcher [facility] 5 16:30:07 Medications Name Sig Start Date Stop Date Status Note LastModified by Organization Details LastModified Time cetirizin e 10 mg tablet active Not Available Not Available Not Available azithromy radha 250 mg tablet TAKE 2 TABLETS BY MOUTH ON DAY 1, AND THEN TAKE 1 TABLET BY MOUTH ONCE A DAY ON DAY 2 THROUGH DAY 5 11/16 completed Not Available Not Available Not Available hydrocodo ne 5 mg-acetam inophen 325 mg tablet Take 1 tablet every 6 hours by oral route. 2024 active Not Available Not Available Not Avai lable dexametha sone 6 mg tablet TAKE 1 TABLET BY MOUTH ONCE DAILY FOR 5 DAYS 11/16 completed Not Available Not Available Not Available Epi E-Z Pen 0.3 mg/0.3 mL injection , auto-inje ctor Take by injectio n route. active Not Available Not Available No t Available ketorolac 10 mg tablet TAKE 1 TABLET BY MOUTH EVERY 6 HOURS NEEDED FOR PAIN 12/06 completed Not Available Not Available Not Available benzonata te 100 mg capsule TAKE 1 CAPSULE BY MOUTH THREE TIMES DAILY NEEDED FOR COUGH 11/16 completed Not Available Not Available Not Available cephalexi n 500 mg capsule Take 1 capsule 3 times a day by oral route. 2024 active Not Available Not Available Not Avai lable ranitidin e 150 mg tablet 10/31 completed Recorded 03/17/20 16 6:03PM by JACLYN Loredo, Office Visit; Refill Quantity : 0; Not Available Not Available Not Available albuterol sulfate HFA 90 mcg/actua tion aerosol inhaler Inhale 2 puffs every 4 hours by inhalati on route. active Not Available Not Available No t Available cefdinir 300 mg capsule TAKE 1 CAPSULE BY MOUTH EVERY 12 HOURS FOR 10 DAYS 11/16 completed Not Available Not Available Not Available fluticaso ne propionat e 50 mcg/actua tion nasal spray,rust pension 04/18 completed Not Available Not Available Not Available amoxicill in 875 mg-potass ium clavulana te 125 mg tablet 11/16 completed Not Available Not Available Not Available Vitamin 27 mg iron-0.8 mg tablet Take 1 tablet every day by oral route. active Not Available Not Available No t Available Mucinex 600 mg tablet, extended release TAKE 1 BY MOUTH TWICE DAILY FOR 7 DAYS 11/16 completed Not Available Not Available Not Available Tylenol Extra Strength 500 mg/15 mL oral liquid every four hours, as needed 10/31 completed 0; Recorded 03/17/20 16 5:34PM by Yarely Mancia LPN, Office Visit; Not Available Not Available Not Available ciproflox acin 0.3 %-dexamet hasone 0.1 % ear drops,[facility] ADMINIST ER 4 DROPS INTO RIGHT EAR TWICE DAILY FOR 7 DAYS 11/16 completed Not Available Not Available Not Available nitrofura ntoin monohydra te/macroc rystals 100 mg capsule TAKE 1 CAPSULE BY MOUTH TWICE DAILY FOR 7 DAYS 11/16 completed Not Available Not Available Not Available Aleve every twelve hours, as needed 10/31 completed 0; Recorded 03/17/20 16 5:34PM by Yarely Mancia LPN, Office Visit; Not Available Not Available Not Available Vitals Date Recorded Body height Body mass index (BMI) Body weight Oxygen saturation Oxygen saturation in Arterial blood by Pulse oximetry Heart rate Respiratory rate Body temperature Systolic And Diastolic Provider Name and Address Organization Details Last Updated DateTime 5 167.64 cm 22.9 kg/m2 91670.8 2 g 99 % 99 % 77 /min 18 /min 97.6 [degF] 120/74 mm[Hg] MONIQUE TERESA [facility], LMatthewLAnna 5 13:22:12 Date Recorded Body height Body mass index (BMI) Body weight Respiratory rate Oxygen saturation Oxygen saturation in Arterial blood by Pulse oximetry Heart rate Body temperature Systolic And Diastolic Provider Name and Address Organization Details Last Updated DateTime 5 167.64 cm 23.9 kg/m2 89419.3 7 g 18 /min 98 % 98 % 100 /min 98.8 [degF] 128/66 mm[Hg] GRAYSON PACHECO [facility], L.L.CMatthew 5 16:17:38 Date Recorded Body height Body mass index (BMI) Body weight Oxygen saturation Oxygen saturation in Arterial blood by Pulse oximetry Heart rate Systolic And Diastolic Provider Name and Address Organization Details Last Updated DateTime 5 167.64 cm 24.2 kg/m2 59951.8 6 g 98 % 98 % 105 /min 110/78 mm[Hg] Esperanza Andre [facility], L.L.CMatthew 5 15:03:45 Date Recorded Body height Body mass index (BMI) Body weight Oxygen saturation Oxygen saturation in Arterial blood by Pulse oximetry Heart rate Respiratory rate Body temperature Systolic And Diastolic Provider Name and Address Organization Details Last Updated DateTime 5 167.64 cm 24.6 kg/m2 00568.7 4 g 98 % 98 % 90 /min 18 /min 97.8 [degF] 132/74 mm[Hg] MONIQUE TERESA [facility], L.L.CMatthew 5 16:09:23 Social History Question Answer Notes LastModified by Organizat ion Details LastModified Time Tobacco Smoking Status Former Smoker MONIQUE FRAGA [facility] 10/31/2024 14:27:44 Are You Blind Or Do You Have Difficulty Seeing? No Information not available 06/06/2025 Are You Deaf Or Do You Have Serious Difficulty Hearing? No Information not available 06/06/2025 Who Is Your Employer? [employer] Information not available 10/31/2024 What Was The Date Of Your Most Recent Tobacco Screening? 04/18/2025 Information not available 04/18/2025 What Is Your Relationship Status? Information not available 10/31/2024 Are You Sexually Active? Yes Information not available 10/31/2024 Do You Have Difficulty Walking Or Climbing Stairs? No Information not available 06/06/2025 Sex: Unknown Functional Status Question Answer Note LastModified by Organizat ion Details LastModified Time Do you use any illicit or recreational drugs? No Information not available 10/31/2024 Do you or have you ever used any other forms of tobacco or nicotine? No [email or web address] Information not available 05/16/2025 What is your level of alcohol consumption? None Information not available 10/31/2024 Are you currently employed? Yes Information not available 10/31/2024 Are you able to walk? YESWOREST Information not available 06/06/2025 Do you have difficulty doing errands alone? No Information not available 06/06/2025 Are you able to care for yourself independently? Yes Information not available 10/31/2024 Do you have difficulty dressing, bathing, grooming, or toileting? No Information not available 10/31/2024 Mental Status Question Answer Note LastModified by Organization D etails LastModified Time Do you have difficulty concentrating, remembering or making decisions? No Information no t available 06/06/2025 Family History Relationship Description Onset Age of this Age Resolved Age Notes LastModified by Organization Details LastModified Time Maternal Grandfather Heart disease [email or web address] Not available 14:26:23 Brother Diabetes mellitus Type 1 [email or web address] Not available 14:26:49 Medical History Condition Response Coronary Artery Disease N Other N Gout N Kidney Stones N Blood Diseases N Hyperthyroidism N Breast Cancer N Blood Transfusion N Depression Y Hypothyroidism N Lung Disease N COPD N Developmental or Behavioral Disorders N Defects or Inherited Disease N Breast Problem N Difficulty Swallowing N Anesthesia Complications N Anxiety Disorder Y Meniere's disease N Muscle, Joint, or Bone Problems N Vision or Eye Problems N Arthritis N Infertility N Polyps N Cancer N Stroke N Varicosities N Endometriosis N Bladder or Kidney Problems N High Cholesterol N Liver Disease N Fibromyalgia N Headaches N Kidney Disease N Allergies/Hayfever Y Heart Problems N Ear or Hearing Problems N Hospitalizations N Thyroid Problems N GI Problems N ADD/ADHD N Skin Problems N Eating Disorder N Anemia N Constipation N Mental Illness N Ovarian Cancer N Diabetes N Bedwetting N Seizures/Epilepsy N Tuberculosis N Eczema N Diverticulitis N Abuse/Domestic Violence N Asthma Y Reflux/GERD N Hepatitis N Heart Disease N Pulmonary Embolism N Pre-Eclampsia N Hypertension N Chronic Ear Infections N Osteoporosis N Chicken Pox N Autism Spectrum Disorder (ASD) N Thrombophilias N Gynecological History Statement/Question Response Abnormal Pap N Date of Last Pap Smear 12/06/2024 Obstetrics History GPAL:G 1 P 0 0 0 0 Immunizations Vaccine Type Date Status Note Provider Nam e and Address Organization Details Recorded Time Tdap 5 completed MONIQUE stock [facility], CarmellaLAnna 05/16/2025 16:47:31 HPV9 6 completed MONIQUE stock [facility], Mattie 10/31/2024 14:23:34 IPV 3 completed MONIQUE stock [facility], Mattie 10/31/2024 14:23:35 MMR 4 completed MONIQUE stock [facility] 10/31/2024 14:23:35 MMR 8 completed TREBA NEUSCHWANDER null, [facility] 10/31/2024 14:23:35 Tdap 6 completed TREBA NEUSCHWANDER null, [facility] 10/31/2024 14:23:35 varicella 4 completed TREBA NEUSCHWANDER null, [facility] 10/31/2024 14:23:35 varicella 8 completed TREBA NEUSCHWANDER null, [facility] 10/31/2024 14:23:35 Hep B, adolescent or pediatric 3 completed TREBA NEUSCHWANDER null, [facility] 10/31/2024 14:23:35 Hep A, ped/adol, 2 dose 6 completed TREBA NEUSCHWANDER null, [facility] 10/31/2024 14:23:35 Hib (PRP-T) 3 completed TREBA NEUSCHWANDER null, [facility] 10/31/2024 14:23:35 Hib (PRP-T) 4 completed TREBA NEUSCHWANDER null, [facility] 10/31/2024 14:23:35 Hib (PRP-T) 3 completed TREBA NEUSCHWANDER null, [facility] 10/31/2024 14:23:35 Hib (PRP-T) 3 completed TREBA NEUSCHWANDER null, [facility] 10/31/2024 14:23:35 meningococcal MCV4P 6 completed TREBA NEUSCHWANDER null, [facility] 10/31/2024 14:23:35 DTaP 3 completed TREBA NEUSCHWANDER null, [facility] 10/31/2024 14:23:35 DTaP 4 completed TREBA NEUSCHWANDER null, [facility] 10/31/2024 14:23:35 DTaP-Hep B-IPV 3 completed TREBA NEUSCHWANDER null, [facility] 10/31/2024 14:23:35 DTaP-Hep B-IPV 8 completed TREBA NEUSCHWANDER null, [facility] 10/31/2024 14:23:35 DTaP-Hep B-IPV 3 completed TREBA NEUSCHWANDER null, [facility] 10/31/2024 14:23:35 Past Encounters Encounter ID Performer Location Encounter Start Date Encounter Closed Date Diagnosis/Indication Diagnosis SNOMED-CT Code Diagnosis ICD10 Code Diagnosis Note [id number] Efra Connell MD [facility] ([facility]) [address] [place] [id number] 10/31/2024 14:12:43 10/31/2024 15:54:16 Normal in primigravida 7036654690 89805 Z34.00 [id number] Efra Connell MD [facility] ([facility]) [address] [place] [id number] 5 11/07/2024 10:25:24 11/08/2024 14:24:17 [id number] Efra Connell MD [facility] ([facility]) [address] [place] [id number] 5 12/06/2024 09:44:54 12/06/2024 13:25:28 Normal in primigravida 9627398961 12293 Z34.00 Gestation period, 11 weeks 70893756 Z3A.11 [id number] Efra Connell MD [facility] ([facility]) [address] [place] [id number] 01/03/2025 15:29:41 01/03/2025 16:02:14 Normal in primigravida 5423394868 90418 Z34.01 Z34.02 Z34.03 Gestation period, 15 weeks 1933111 Z3A.15 [id number] Efra Connell MD [facility] ([facility]) [address] [place] [phone] 5 02/07/2025 14:45:21 02/09/2025 16:28:45 [id number] Efra Connell MD [facility] [address] [place], [place] [phone] 5 02/07/2025 15:11:01 02/07/2025 16:28:45 Normal in primigravida 9338904717 03477 Z34.01 Z34.02 Z34.03 Gestation period, 20 weeks 13927504 Z3A.20 [facility] 59612935 R05.9 [id number] Efra Connell MD [facility] [address] [place] [id number] 5 03/07/2025 15:31:41 03/07/2025 17:04:28 Normal in primigravida 5149397198 58292 Z34.02 Gestation period, 24 weeks 518065080 Z3A.24 [id number] Efra Connell MD [facility] ([facility]) [address] [place] [id number] 5 04/02/2025 14:58:59 04/02/2025 15:59:32 Normal in primigravida 8379565535 77801 Z34.02 Gestation period, 28 weeks 38938097 Z3A.28 Blood grou p O Rh(D) negative 201882693 Z67.41 Order for RhoGam sent to [facility] on 04/02/25 Breech presentation 6096 002 O32.1XX0 Uterine si ze for dates discrepancy 677721027 O26.748 [id number] Efra Connell MD [facility] ([facility]) [address] [place] [id number] 5 04/02/2025 14:41:05 04/03/2025 10:08:44 Normal in primigravida 7108220557 76592 Z34.02 [id number] Efra Connell MD [facility] ([facility]) [address] [place] [id number] 5 04/10/2025 14:44:22 04/12/2025 04:06:17 [id number] Efra Connell MD [facility] ([facility]) [address] [place] [phone] 5 04/18/2025 15:49:30 05/21/2025 10:51:15 Normal 08259505 Z34.03 Gestation period, 30 weeks 47407173 Z3A.30 [id number] Efra Connell MD [facility] ([facility]) [address] [place] [id number] 5 05/01/2025 12:30:54 05/01/2025 13:39:52 Normal in primigravida 4157910004 13392 Z34.02 Gestation period, 32 weeks 1080830 Z3A.32 [id number] Efra Connell MD [facility] [address] [place] [id number] 5 05/01/2025 11:50:12 05/02/2025 13:58:40 [id number] Efra Connell MD [facility] ([facility]) [address] [place] [id number] 5 05/16/2025 15:59:37 05/16/2025 16:37:43 Normal in primigravida 9411856986 28870 Z34.02 Gestation period, 34 weeks 78086157 Z3A.34 [id number] Kiran Mccarty MD [facility] ([facility]) [address] [place] [id number] 5 05/30/2025 14:50:15 05/30/2025 15:46:09 Normal in primigravida 3838629139 06356 Z34.02 Doing well. Anticipate d guidance provided. Gestation period, 36 weeks 84560019 Z3A.36 [id number] Efra Connell MD [facility] ([facility]) [address] [place] [address] 06/06/2025 15:34:07 06/06/2025 17:15:58 Normal in primigravida 5664656527 22798 Z34.02 Gestation period, 37 weeks 72714762 Z3A.37 Health Concerns Section Related Observation LastModified by Organization Detai ls LastModified Time None Recorded Concern Status LastModified by Organization Details LastModified Time None Recorded Advance Directives Directive None Recorded Payers Insurance Date Sequence Insurance Name Policy Number Policy Mckeon Covered Member ID Mckeon Member ID Guarantor Name 06/15/2025 [place] Mena Whiteside [id number] Mena Whiteside 06/10/2025 1 [place] [id number] Dane Whiteside [id number] Mena Whiteside 10/31/2024 1 *SELF PAY* Al pablo Whiteside 06/15/2025 2 [facility] (MEDICAID HMO) Mena Whiteside [id number] Mena Whiteside Notes Date Note Type Note Provider Name and Address Organization Details Recorded Time 05/01/2025 text/html jr ob routineRep orted by PatientHPIFor associated symptoms, patient reportscramping (light),nausea,constip ation, andedema (feet/hands/face)but reportsno abdominal pain,no contractions,normal movement,no bleeding,no vaginal discharge,no vaginal/vulvar itching or irritation,no dysuria,no frequency,no urgency,no hematuria,no fever,no emesis,no diarrhea/loose stool,no visual changes,no headache,no dizziness, andno breathlessness.heartbu rnPt denies any alcohol, tobacco or drug useROS as noted in the HPI Efra Connell MD [address] [place] [address], [id number], [facility]CMatthew 05/01/2025 13:39:10 05/16/2025 text/html jr ob routineRep orted by PatientHPIFor associated symptoms, patient reportsabdominal pain,cramping,nausea,c onstipation, andedema (feet/hands)but reportsno contractions,normal movement,no bleeding,no vaginal discharge,no vaginal/vulvar itching or irritation,no dysuria,no frequency,no urgency,no hematuria,no fever,no emesis,no diarrhea/loose stool,no visual changes,no headache,no dizziness, andno breathlessness.heartbu rnPt denies any alcohol, tobacco or drug useROS as noted in the HPI Efra Connell MD [address] [place] [address], [id number], [facility] 05/16/2025 16:35:22 05/30/2025 text/html Dr. Connell Pt here today for 36 week FUPt is feeling overall wellSome slight swelling in face, feet, and hands Kiran Mccarty MD [address] [place] [address], [phone], [facility] 06/02/2025 16:49:37 06/06/2025 text/html jr ob routineRep orted by PatientHPIFor associated symptoms, patient reportsabdominal pain,cramping, andedema (feet/hands/face)but reportsno contractions,normal movement,no bleeding,no vaginal discharge,no vaginal/vulvar itching or irritation,no dysuria,no frequency,no urgency,no hematuria,no fever,no nausea,no emesis,no constipation,no diarrhea/loose stool,no visual changes,no headache,no dizziness, andno breathlessness.heartbu rn,back pain, vaginal pressurePt denies any alcohol, tobacco or drug useROS as noted in the HPI Efra Connell MD [address] [place] [address], [phone], [facility] 06/06/2025 16:22:31 OBGyn Episode Ob Episode Information Episode Created Date Number of Fetuses Patient Bloodtype Patient rh Status Prepregnancy Weight lbs Domestic Partner Domestic Partner Phone Father Name Exercise Physiology Professor Status 10/31/20 24 1 O Negative Nicolas OPEN Fetus Data First Name Last Name Admitted to NICU Weight (g) Sex Living Outcome Pediatric Complications Fetus ID Race Codes Race Delivery Type [id number] Problems Problem Notes O Neg blood type- needs RhoG am @ 28 weeks gestation, Rhogam received at [facility] on 04/09/25order for Epidural consult sent on 05/16/25, Problem Name Start Date End Date Resolution Snomed Code Not e Normal in primigravida 12/05/2024 [id number] Myles Calculation Initial Myles Date Initial Exam Date Initial Exam Provider Initial Ultrasound Date Last Menstrual Period Date Ultra Sound Weeks Gestation 06/24/2025 10/31/2024 11/07/2024 7 Eighteen To Twenty Week Myles Update Ultra Sound Date Fundal Height At Umbil Quickening Date Ultra Sound Latest Weeks Gestation Final Myles Confirmed By Final Myles Confirmed Date Final Myles Date Ultra Sound Latest Days Gestation 0 0 Pre- Flowsheet Flowsheet Date 10/31/2024 Hastings Score Blood Edema Fundus Height Fundus Units Glucose Ketones Leukocytes Nitrite Labor Signs Protein Cervic Dilation Cervic Effacement Cervic Station Type Weight in lbs Pre/Post Dialysis Refused Weight 119.675036258348 BP Diastolic BP Location Tested BP Systolic BP Type 64 110 sitting Fetus Heart Rate Present Fetus Movement Comments OBI nausea, headache, fatigu e, breast tenderness, headache,cramping Flowsheet Date 11/07/2024 Hastings Score Blood Edema Fundus Height Fundus Units Glucose Ketones Leukocytes Nitrite Labor Signs Protein Cervic Dilation Cervic Effacement Cervic Station Type Weight in lbs Pre/Post Dialysis Refused BP Diastolic BP Location Tested BP Systolic BP Type Fetus Heart Rate Present Fetus Movement Comments u/s on 11/07/24 MYLES 06/24/25, EGA 7.2, FHR 151 Flowsheet Date 12/06/2024 Hastings Score Blood Edema Fundus Height Fundus Units Glucose Ketones Leukocytes Nitrite Labor Signs Protein Cervic Dilation Cervic Effacement Cervic Station Type Weight in lbs Pre/Post Dialysis Refused 118.373451615400 BP Diastolic BP Location Tested BP Systolic BP Type 80 136 Fetus Heart Rate Present A 152 Present Fetus Movement A No Comments NOB- nausea and vomiting, fa tigue, breast tenderness, heartburn, headaches Flowsheet Date 12/27/2024 Hastings Score Blood Edema Fundus Height Fundus Units Glucose Ketones Leukocytes Nitrite Labor Signs Protein Cervic Dilation Cervic Effacement Cervic Station Type Weight in lbs Pre/Post Dialysis Refused BP Diastolic BP Location Tested BP Systolic BP Type Fetus Heart Rate Present Fetus Movement Comments Home State RA complete Flowsheet Date 01/03/2025 Hastings Score Blood Edema Fundus Height Fundus Units Glucose Ketones Leukocytes Nitrite Labor Signs Protein Cervic Dilation Cervic Effacement Cervic Station none trace Type Weight in lbs Pre/Post Dialysis Refused 118.678496336531 BP Diastolic BP Location Tested BP Systolic BP Type 68 R arm 124 Fetus Heart Rate Present A 156 Present Fetus Movement A No Comments nausea and vomiting, heartbu rn Flowsheet Date 02/07/2025 Hastings Score Blood Edema Fundus Height Fundus Units Glucose Ketones Leukocytes Nitrite Labor Signs Protein Cervic Dilation Cervic Effacement Cervic Station Type Weight in lbs Pre/Post Dialysis Refused BP Diastolic BP Location Tested BP Systolic BP Type Fetus Heart Rate Present Fetus Movement Comments Flowsheet Date 02/07/2025 Hastings Score Blood Edema Fundus Height Fundus Units Glucose Ketones Leukocytes Nitrite Labor Signs Protein Cervic Dilation Cervic Effacement Cervic Station none trace Type Weight in lbs Pre/Post Dialysis Refused 124.336337528796 BP Diastolic BP Location Tested BP Systolic BP Type 84 118 Fetus Heart Rate Present A 160 Present Fetus Movement A Yes Comments nausea, round ligament pain, body aches,cough, sore throat, chills x2 days Flowsheet Date 02/12/2025 Hastings Score Blood Edema Fundus Height Fundus Units Glucose Ketones Leukocytes Nitrite Labor Signs Protein Cervic Dilation Cervic Effacement Cervic Station Type Weight in lbs Pre/Post Dialysis Refused BP Diastolic BP Location Tested BP Systolic BP Type Fetus Heart Rate Present Fetus Movement Comments u/s 02/07/25, breech presenta tion, EGA 20.5, No abnormalities detected. Flowsheet Date 03/07/2025 Hastings Score Blood Edema Fundus Height Fundus Units Glucose Ketones Leukocytes Nitrite Labor Signs Protein Cervic Dilation Cervic Effacement Cervic Station 23 cm none none Negative neg Type Weight in lbs Pre/Post Dialysis Refused Weight 130.898877677636 BP Diastolic BP Location Tested BP Systolic BP Type 68 100 sitting Fetus Heart Rate Present A 156 Present Fetus Movement A Yes Comments occ dizziness,heartburn,low back pain. Flowsheet Date 04/02/2025 Hastings Score Blood Edema Fundus Height Fundus Units Glucose Ketones Leukocytes Nitrite Labor Signs Protein Cervic Dilation Cervic Effacement Cervic Station Type Weight in lbs Pre/Post Dialysis Refused BP Diastolic BP Location Tested BP Systolic BP Type Fetus Heart Rate Present Fetus Movement Comments Flowsheet Date 04/02/2025 Hastings Score Blood Edema Fundus Height Fundus Units Glucose Ketones Leukocytes Nitrite Labor Signs Protein Cervic Dilation Cervic Effacement Cervic Station 25 cm none trace Type Weight in lbs Pre/Post Dialysis Refused Weight 136.243839340311 BP Diastolic BP Location Tested BP Systolic BP Type 78 132 Fetus Heart Rate Present A 144 Fetus Movement A Yes Comments nausea, heartburn, constipat ion, back pain Flowsheet Date 04/10/2025 Hastings Score Blood Edema Fundus Height Fundus Units Glucose Ketones Leukocytes Nitrite Labor Signs Protein Cervic Dilation Cervic Effacement Cervic Station Type Weight in lbs Pre/Post Dialysis Refused BP Diastolic BP Location Tested BP Systolic BP Type Fetus Heart Rate Present Fetus Movement Comments Flowsheet Date 04/18/2025 Hastings Score Blood Edema Fundus Height Fundus Units Glucose Ketones Leukocytes Nitrite Labor Signs Protein Cervic Dilation Cervic Effacement Cervic Station 27 cm none none Negative neg Type Weight in lbs Pre/Post Dialysis Refused Weight 143.470403668377 BP Diastolic BP Location Tested BP Systolic BP Type 60 120 sitting Fetus Heart Rate Present A 160 Fetus Movement A Yes Comments light cramping, edema in fee t/hands during the night, heartburn, low back pain, Rho marzena received on 04/09/25 at [facility] Flowsheet Date 05/01/2025 Hastings Score Blood Edema Fundus Height Fundus Units Glucose Ketones Leukocytes Nitrite Labor Signs Protein Cervic Dilation Cervic Effacement Cervic Station Type Weight in lbs Pre/Post Dialysis Refused BP Diastolic BP Location Tested BP Systolic BP Type Fetus Heart Rate Present Fetus Movement Comments Flowsheet Date 05/01/2025 Hastigns Score Blood Edema Fundus Height Fundus Units Glucose Ketones Leukocytes Nitrite Labor Signs Protein Cervic Dilation Cervic Effacement Cervic Station 31 cm none none Negative neg Type Weight in lbs Pre/Post Dialysis Refused Weight 142.112715598984 BP Diastolic BP Location Tested BP Systolic BP Type 74 120 sitting Fetus Heart Rate Present A 146 Present Fetus Movement A Yes Comments mild cramping, nausea, const ipation, edema-face/feet/leg edema and pain to hands,heartburn Flowsheet Date 05/07/2025 Hastings Score Blood Edema Fundus Height Fundus Units Glucose Ketones Leukocytes Nitrite Labor Signs Protein Cervic Dilation Cervic Effacement Cervic Station Type Weight in lbs Pre/Post Dialysis Refused BP Diastolic BP Location Tested BP Systolic BP Type Fetus Heart Rate Present Fetus Movement Comments u/s on 05/01/25, MYLES 06/24/25, EGA 32.2, Vertex, VIOLETA 9.51 Flowsheet Date 05/16/2025 Hastings Score Blood Edema Fundus Height Fundus Units Glucose Ketones Leukocytes Nitrite Labor Signs Protein Cervic Dilation Cervic Effacement Cervic Station none none trace Type Weight in lbs Pre/Post Dialysis Refused Weight 148.705888059711 BP Diastolic BP Location Tested BP Systolic BP Type 66 128 Fetus Heart Rate Present A 156 Present Fetus Movement A Yes Comments group B strep collectednause a, cramps, abd painTDaP given today Flowsheet Date 05/30/2025 Hastings Score Blood Edema Fundus Height Fundus Units Glucose Ketones Leukocytes Nitrite Labor Signs Protein Cervic Dilation Cervic Effacement Cervic Station 36 cm Type Weight in lbs Pre/Post Dialysis Refused Weight 150.438271747590 BP Diastolic BP Location Tested BP Systolic BP Type 78 L arm 110 sitting Fetus Heart Rate Present A 155 Fetus Movement Comments Flowsheet Date 06/06/2025 Hastings Score Blood Edema Fundus Height Fundus Units Glucose Ketones Leukocytes Nitrite Labor Signs Protein Cervic Dilation Cervic Effacement Cervic Station Type Weight in lbs Pre/Post Dialysis Refused BP Diastolic BP Location Tested BP Systolic BP Type Fetus Heart Rate Present Fetus Movement Comments Group B strep NegativeOB rec ords sent Flowsheet Date 06/06/2025 Hastings Score Blood Edema Fundus Height Fundus Units Glucose Ketones Leukocytes Nitrite Labor Signs Protein Cervic Dilation Cervic Effacement Cervic Station 36 cm none trace Negative none neg 1cm 40% -4 Type Weight in lbs Pre/Post Dialysis Refused Weight 152.310259341035 BP Diastolic BP Location Tested BP Systolic BP Type 74 132 sitting Fetus Heart Rate Present A 146 Present Fetus Movement A Yes Comments abdominal pain/cramping, fausto ma-feet/hands/face, heartburn, low back pain, vaginal pressure Menstrual History Last Menstrual Date Menses Monthly On Bcp Conception Prior Menses Frequency Hcg Plus Date Menarche Onset Age Genetic Screening And Infection History Question Response Note Patient's Age Will Be 35 Years Or Older At Estim ated Date of Delivery false Thalassemia (Georgian, Liberian, Mediterranean, Or Background): MCV < 80 false Neural Tube Defect (Meningomyelocele, Spina Bifi da, Or Anencephaly) false Congenital Heart Defect false Down Syndrome false Geraldo-Sachs (eg, Sabianist, Cajun, Austrian-Granite) f alse Caitie Disease false Sickle Cell Disease Or Trait () false Hemophilia Or Other Blood Disorders false Muscular Dystrophy false Cystic Fibrosis false [place]'s Chorea false Intellectual Disability/Autism false If Yes, Was Person Tested For Fragile X? false Other Inherited Genetic Or Chromosomal Disorder false Maternal Metabolic Disorder (eg, Type 1 Diabetes , PKU) false Patient Or Baby's Father Had A Child With Defects Not Listed Above false Recurrent Loss, Or A Stillbirth false Medications (including Suppl ements, Vitamins, Herbs, OTC Drugs), Illicit/Recreational Drugs, Alcohol false If Yes, Agent(s) And Strength/Dosage false Any Other Genetic History false Live With Someone With TB Or Exposed To TB false Patient Or Partner Has History Of Genital Herpes false Rash Or Viral Illness Since Last Menstrual Perio d false History Of STD, Gonorrhea, Chlamydia, HPV, Syphi lis false Other Infection History false History of HIV false History of Hepatitis false Prior GBS-infected child false Hemoglobinopathy Or Carrier false Other Structural Defect false Recent Travel History Outside of Country false Mental Retardation/Autism false Delivery Information Delivery Date Delivery Type Labor Anesthesia Weeks Gestation Incision Type Labor Labor Length Hrs Delivered By Post Complications Tubal Sterilization Discharge Date Comments Discharge Information Feeding Method Contraceptive Method Maternal HG B and HCT Levels
[2025-06-16 22:23] VITALS: BP 118/77; PULSE 104; RESP 18; TEMP 37.9; O2SAT 97; BMI 22.8
== END 2025-06-17 00:07 | disposition left against medical advice (07) ==
PROVIDERS: Emergency Provider Family Medicine; PCP Family Medicine
DX: Z53.21 Procedure and treatment not carried out due to patient leaving prior to being seen by health care provider (principal)